=== PATIENT | female | born 1995 ===

== ENCOUNTER → 2022-02-05 | Outpatient (CLI) | payer OTHER | END | disposition home or self-care (01) | LOC: LAB SHORT 09:20 → LAB 09:20 | DX: K42.9 Umbilical hernia without obstruction or gangrene (principal) | CPT/HCPCS: 87070; 87205 ==

== ENCOUNTER → 2025-03-19 | Outpatient (CLI) | payer OTHER ==
[2025-03-19 12:53] LABS: Source, Urine Clean Catch
[2025-03-19 14:27] LABS: U Amphetamine Screen Not Detected; U Barbituate Screen Not Detected; U Benzodiazapine Screen Not Detected; U Buprenorphine Screen Not Detected; U Cannabinoids Screen DETECTED; U Cocaine Screen Not Detected; U Methadone Screen Not Detected; U Methamphetamine Screen Not Detected; U Opiates Screen Not Detected; U Oxycodone Screen Not Detected; U Phencyclidine Screen Not Detected
[2025-03-24 15:00] LABS: 11-NOR-9-CARBOXY-THC,URN,QUANT >500 ng/mL
== END | disposition home or self-care (01) ==
LOC: LAB SHORT 12:52 → LAB 12:52
PROVIDERS: Obstetrics & Gynecology
DX: Z34.81 Encounter for supervision of other normal pregnancy, first trimester (principal)
CPT/HCPCS: 81015; 87077; 87086; 87186; G0480

== ENCOUNTER → 2025-06-22 | Outpatient (CLI) | payer OTHER ==
[2025-06-22 20:04] LABS: Bacterial Vaginosis PCR Negative (NEGATIVE); Candida glabrata-krusei, PCR NOT DETECTED (NOT DETECT)
[2025-06-22 20:16] LABS: Candida Group, PCR DETECTED (NOT DETECT)
== END | disposition home or self-care (01) ==
LOC: LAB 15:55 → LAB SHORT 15:55
PROVIDERS: Advanced Practice Midwife
DX: N76.0 Acute vaginitis (principal)
CPT/HCPCS: 81515